=== PATIENT | male | born 1975 | race Caucasian/White ===

== ENCOUNTER 2021-03-27 19:53 | Emergency (ER) | payer BC ==
--- NOTE | 2021-03-27 21:12 | EDM.PDOC ---
ED HPI GENERAL MEDICAL PROBLEM - General Chief Complaint: Lower Extremity Injury/Pain Stated Complaint: SHOOTING PAINS IN LEFT LEG/FOOT Time Seen by Provider: 03/27/21 20:00 Source of Information: Reports: Patient History Limitations: Reports: No Limitations - History of Present Illness INITIAL COMMENTS - FREE TEXT/NARRATIVE: Patient presented to the ED because of a left ankle pain and redness. He noticed the red rash on his left leg today and is tender and seem to be spreading. There is no recent trauma or injury. He is worries that the screw on his left ankle from a previous fracture has loosen up. - Related Data Allergies Allergy/AdvReac Type Severity Reaction Status Date / Time No Known Allergies Allergy Verified 03/27/21 20:11 Home Meds: Home Meds cephALEXin [Keflex] 500 mg PO TID #30 cap 03/27/21 [Rx] Past Medical History - Past Surgical History Musculoskeletal Surgical History: Reports: Other (See Below) Other Musculoskeletal Surgeries/Procedures:: Left ankle fracture, repaired with plates and screws. Social & Family History - Tobacco Use Years of Tobacco use: 23 Packs/Tins Daily: 1 - Alcohol Use Days Per Week of Alcohol Use: 4 Number of Drinks Per Day: 2 Total Drinks Per Week: 8 - Recreational Drug Use Recreational Drug Use: No Review of Systems - Review of Systems Review Of Systems: See Below Constitutional: Reports: No Symptoms Eyes: Reports: No Symptoms Ears: Reports: No Symptoms Nose: Reports: No Symptoms Mouth/Throat: Reports: No Symptoms Respiratory: Reports: No Symptoms Cardiovascular: Reports: No Symptoms GI/Abdominal: Reports: No Symptoms Genitourinary: Reports: No Symptoms Musculoskeletal: Reports: No Symptoms Skin: Reports: Erythema Neurological: Reports: No Symptoms ED EXAM, GENERAL - Physical Exam Exam: See Below Exam Limited By: No Limitations General Appearance: Alert, No Apparent Distress Eye Exam: Bilateral Eye: PERRL Ears: Normal External Exam, Normal Canal Nose: Normal Inspection, Normal Mucosa, No Blood Throat/Mouth: Normal Inspection, Normal Lips, Normal Teeth Head: Atraumatic, Normocephalic Neck: Normal Inspection, Supple, Non-Tender, Full Range of Motion Respiratory/Chest: No Respiratory Distress, Lungs Clear, Normal Breath Sounds, No Accessory Muscle Use, Chest Non-Tender Cardiovascular: Normal Peripheral Pulses, Regular Rate, Rhythm, No Edema, No Gallop, No JVD, No Murmur GI/Abdominal: Normal Bowel Sounds, Soft, Non-Tender, No Organomegaly Back Exam: Normal Inspection, Full Range of Motion Extremities: Normal Inspection, Normal Range of Motion, Non-Tender Neurological: Alert, Oriented, CN II-XII Intact Course - Vital Signs Text/Narrative:: Lab and xray result was reviewed and discussed with patient Keflex 500 mg PO x1 Last Recorded V/S: Last Vital Signs Temp 36.6 C 03/27/21 19:55 Pulse 92 03/27/21 19:55 Resp 18 03/27/21 19:55 BP 161/107 H 03/27/21 19:55 Pulse Ox 98 03/27/21 19:55 - Orders/Labs/Meds Orders: Active Orders 24 hr Category Date Time Status Ankle Min 3V Lt [CR] Stat Exams 03/27/21 20:13 Ordered Labs: Laboratory Tests 03/27/21 03/27/21 Range/Units 20:35 20:35 WBC 8.9 (3.2-10.1) x10-3/uL RBC 4.46 (3.90-5.90) x10(6)uL Hgb 15.1 (12.9-17.7) g/dL Hct 43.6 (38.3-50.1) % MCV 97.9 (80.8-98.7) fL MCH 33.8 H (27.0-33.3) pg MCHC 34.5 (28.7-35.3) g/dL RDW 13.3 (12.4-15.0) % Plt Count 269 (117-477) x10(3)uL MPV 6.7 (6.7-11.0) fL Neut % (Auto) 57.0 (40.3-71.8) % Lymph % (Auto) 27.7 (15.8-45.3) % Power % (Auto) 12.3 (5.5-15.2) % Eos % (Auto) 1.6 (0.1-6.8) % Baso % (Auto) 1.4 (0.3-3.8) % Neut # (Auto) 5.1 (1.7-6.9) x10-3/uL Lymph # (Auto) 2.5 (0.5-4.5) x10-3/uL Power # (Auto) 1.1 (0.0-1.2) x10-3/uL Eos # (Auto) 0.1 (0.0-0.6) x10-3/uL Baso # (Auto) 0.1 (0.0-0.3) x10-3/uL D-Dimer, Quantitative 0.20 (0.0-0.59) mg/LFEU Departure - Departure Time of Disposition: 21:30 Disposition: Home, Self-Care 01 Condition: Good Clinical Impression: Cellulitis - Discharge Information Prescriptions: cephALEXin [Keflex] 500 mg PO TID #30 cap Instructions: Cellulitis, Adult Referrals: PCP,None [Primary Care Provider] - Forms: ED Department Discharge Additional Instructions: Please read discharge instructions on cellulitis Take ibuprofen 800 mg with tylenol 1000 mg every 8 hours as needed for pain Keflex 500 mg 3 times daily for 10 days Follow up as needed Sepsis Event Note (ED) - Evaluation Sepsis Screening Result: No Definite Risk - Focused Exam Vital Signs: Vital Signs Temp Pulse Resp BP Pulse Ox 03/27/21 19:55 36.6 C 92 18 161/107 H 98 - My Orders Last 24 Hours: My Active Orders 03/27/21 20:13 Ankle Min 3V Lt [CR] Stat - Assessment/Plan Last 24 Hours: My Active Orders 03/27/21 20:13 Ankle Min 3V Lt [CR] Stat
[2021-03-27] MEDS ORDERED: Cephalexin 500 MG Cap PO STA (21:23)
== END 2021-03-27 21:35 | disposition home or self-care (01) ==
LOC: FB.ED 19:53
DX: L03.116 Cellulitis of left lower limb (principal); Z72.0 Tobacco use
CPT/HCPCS: 36415; 73610-LT; 85025; 85379; 99283-25; A9270-GY

== ENCOUNTER 2023-11-16 09:48 | Emergency (ER) | payer BC ==
[2023-11-16 11:04] LABS: BASOPHILS ABSOLUTE AUTO 0.1 x10-3/uL (0.0-0.3); BASOPHILS PERCENT AUTO 0.8 % (0.3-3.8); EOSINOPHILS ABSOLUTE AUTO 0.1 x10-3/uL (0.0-0.6); EOSINOPHILS PERCENT AUTO 0.8 % (0.1-6.8); HEMOGLOBIN 14.1 g/dL (12.9-17.7); LYMPHOCYTES ABSOLUTE AUTO 1.9 x10-3/uL (0.5-4.5); MEAN CORPUSCULAR HEMOGLOBIN 33.8 pg (27.0-33.3); MEAN CORPUSCULAR HGB CONC 34.4 g/dL (28.7-35.3); MEAN CORPUSCULAR VOLUME 98.4 fL (80.8-98.7); MEAN PLATELET VOLUME 6.9 fL (6.7-11.0); MONOCYTES ABSOLUTE AUTO 0.7 x10-3/uL (0.0-1.2); MONOCYTES PERCENT AUTO 8.4 % (5.5-15.2); NEUTROPHILS ABSOLUTE AUTO 5.2 x10-3/uL (1.7-6.9); PLATELET COUNT,PLT 245 x10(3)uL (117-477); RED BLOOD CELL COUNT 4.17 x10(6)uL (3.90-5.90); RED CELL DISTRIBUTION WIDTH 14.9 % (12.4-15.0); WHITE BLOOD CELL COUNT,WBC 7.9 x10-3/uL (3.2-10.1)
[2023-11-16 11:06] LABS: BLOOD UREA NITROGEN,BUN 9 mg/dL (7-18); CALCIUM 8.9 mg/dL (8.6-10.2); CARBON DIOXIDE,CO2 25 mmol/L (21-32); CHLORIDE,CL 100 mmol/L (100-110); CREATININE 0.6 mg/dL (0.70-1.30); EST CRCL DRUG DOSING (CG) 184.85 mL/min; ESTIMATED GFR 119 mL/min (>60); GLUCOSE RANDOM 121 mg/dL (80-116); POTASSIUM,K 3.3 mmol/L (3.5-5.3); SODIUM,NA 137 mmol/L (135-145)
[2023-11-16 11:12] LABS: A/G RATIO 0.9; ALANINE AMINOTRANSFERASE,ALT 72 U/L (12-36); ALBUMIN 3.6 g/dL (3.5-5.2); ALKALINE PHOSPHATASE 147 IU/L (56-112); ASPARTATE AMNIOTRANSFERASE,AST 52 IU/L (5-25); BILIRUBIN TOTAL 0.5 mg/dL (0.1-1.3); MAGNESIUM 2.1 mg/dL (1.8-2.5); PROTEIN TOTAL,TP 7.6 g/dL (6.0-8.0)
[2023-11-16 11:15] LABS: ETHANOL BLOOD MEDICAL 0.12 % (<0.03); TROPONIN I 5.7 pg/mL (4.0-60.3)
== END 2023-11-16 12:45 | disposition home or self-care (01) ==
LOC: FB.ED 09:48
DX: S22.42XA Multiple fractures of ribs, left side, initial encounter for closed fracture (principal); J44.9 Chronic obstructive pulmonary disease, unspecified; K70.9 Alcoholic liver disease, unspecified; F17.200 Nicotine dependence, unspecified, uncomplicated; X50.0XXA Overexertion from strenuous movement or load, initial encounter
CPT/HCPCS: 36415; 71101-LT; 80053; 80307; 83735; 84484; 85025; 85379; 93005; 93010; 99284; 99285

== ENCOUNTER 2024-08-07 06:56 | Day surgery (SDC) | payer BC ==
[2024-08-07] MEDS ORDERED: Propofol 200 MG/20 ML SDV IV ONE (06:57)
[2024-08-07] MEDS ORDERED: Midazolam 1 MG/ML 2 ML SDV IV ONE (06:57)
[2024-08-07] MEDS ORDERED: Lidocaine 2% 5 ML SDV INJECT ONE (06:57)
[2024-08-07] MEDS ORDERED: Sodium Chloride 0.9% 10 ML Syringe FLUSH PRN (07:00)
[2024-08-07] MEDS: Lactated Ringers 1,000 ML IV SCH (08:09)
[2024-08-07] MEDS: Simethicone Drops 40 MG/0.6 ML 30 ML Bottle ONE (08:28)
[2024-08-08 22:01] LABS: LACTOFERRIN,FECAL BY ELISA Negative (Negative)
[2024-08-10 17:53] LABS: ADENOVIRUS 40/41 PCR Not Detected; ASTROVIRUS PCR Not Detected; CAMPYLOBACTER PCR Not Detected; CRYPTOSPORIDIUM PCR Not Detected; CYCLOSPORA CAYETANENSIS PCR Not Detected; ENTAMOEBA HISTOLYTICA PCR Not Detected; ENTEROAGGREGATIVE E. COLI PCR Not Detected; ENTEROPATHOGENIC E. COLI PCR Not Detected; ENTEROTOXIGENIC E. COLI PCR Not Detected; GIARDIA LAMBLIA PCR Not Detected; NOROVIRUS GI/GII PCR Not Detected; PLESIOMONAS SHIGELLOIDES PCR Not Detected; ROTAVIRUS A PCR Not Detected; SALMONELLA PCR Not Detected; SAPOVIRUS PCR Not Detected; SHIG/ENTEROINVASIVE E COLI PCR Not Detected; SHIGA TOXIN-PRODUC E. COLI PCR Not Detected; VIBRIO CHOLERAE PCR Not Detected; VIBRIO PCR Not Detected; YERSINIA ENTEROCOLITICA PCR Not Detected
== END 2024-08-07 09:27 | disposition home or self-care (01) ==
LOC: FB.SDS 06:56
PROVIDERS: ATTEND Surgery
DX: K57.30 Diverticulosis of large intestine without perforation or abscess without bleeding (principal); K40.90 Unilateral inguinal hernia, without obstruction or gangrene, not specified as recurrent; F17.210 Nicotine dependence, cigarettes, uncomplicated
CPT/HCPCS: 00811; 45380; 83630; 87507; 88305; A9270; J2250; J2704; J7120